=== PATIENT | male | born 1985 | race Two or more races ===

== ENCOUNTER 2025-02-20 16:30 | Emergency (ER) | payer SELFPAY ==
[2025-02-20 16:42] VITALS: BP 121/82; PULSE 73; RESP 20; TEMP 36.8; O2SAT 95
--- NOTE | 2025-02-20 16:45 | PC.NURSE ---
Pt wanted to leave after EKG was done. Was seen leaving.
== END 2025-02-20 18:08 | disposition left against medical advice (07) ==
LOC: SERX 17:08
PROVIDERS: Emergency Provider Emergency Medicine
DX: Z53.21 Procedure and treatment not carried out due to patient leaving prior to being seen by health care provider (principal)
CPT/HCPCS: 93005; 99281

== ENCOUNTER → 2025-03-24 | Outpatient (CLI) | payer BC, SELFPAY ==
--- NOTE | 2025-03-24 11:30 | XR_ITS ---
Examination: CT pelvis with intravenous contrast. 2-D sagittal and coronal reconstructions. Date and time of exam:March 24, 2025, 1157 hours INDICATIONS: Lumps in the buttock region bilaterally no disc beginning 2 months ago CTDI: vol (mGy) :6.69 DLP: (mGycm) : 214 Technique: Multiple 3 mm axial sections of the pelvis have been obtained with the 64 slice high resolution scanner. 2-D sagittal and coronal reconstructions. Intravenous administration 60 cc [id number] Low dose protocols were performed. One or more of the following dose reduction techniques were used; automated exposure control, adjustment of the mA and/or KV according to patient size, use of iterative reconstruction technique. Findings: 8mm nodule in the soft tissue right buttock image 24 Diffuse subtle increased density in the buttock region bilaterally axial image 34 which may represent cellulitis No bowel obstruction Normal appendix No diverticulitis Urinary bladder intact No significant prostatomegaly No perianal abscess IMPRESSION: 8mm nodule in the soft tissue right buttock Cellulitis pattern in the bilateral buttock region Consider ultrasound follow-up soft tissue buttock region of any palpable lumps
== END | disposition home or self-care (01) ==
LOC: CCTX 11:43
PROVIDERS: Referring Provider Physician Assistant Medical; Visit Provider Physician Assistant Medical
DX: R22.9 Localized swelling, mass and lump, unspecified (principal)
CPT/HCPCS: 72193; A4649; Q9967